=== PATIENT | female | born 1980 | race Caucasian/White ===

== ENCOUNTER 2019-08-03 23:33 | Emergency (ER) | payer OTHER ==
[~2019-08-03] VITALS: Ht 170.2 cm; Wt 70.5 kg
[2019-08-04 00:28] LABS: COLLECTION METHOD CLEAN CATCH
[2019-08-04 00:31] LABS: BASO % 0.2 % (0.0-2.0); GRAN # 18.8 (1.4-6.5); GRAN % 89.6 % (42.2-75.2); HEMOGLOBIN 11.8 g/dl (12.5-16.0); LYMPH % 4.7 % (20.0-51.0); MEAN CELL VOLUME 94 fl (80.0-100.0); MEAN CORPUSCULAR HEMOGLOBIN 32 pg (27.0-31.0); MEAN CORPUSCULAR HGB CONC 34 g/dl (33.0-37.0); MEAN PLATELET VOLUME 10.7 fl (7.4-10.4); PLATELET COUNT 225 K/mm3 (130-400); REDCELL DISTRIBUTION WIDTH-CV 12.2 % (11.5-14.5)
[2019-08-04 00:36] LABS: HEMATOCRIT 34.9 % (37.0-47.0)
[2019-08-04 00:38] LABS: ALBUMIN 4.6 gm/dL (3.5-5.0); BILIRUBIN,TOTAL 1.1 mg/dL (0.0-1.0); CALCIUM 9.1 mg/dL (8.4-10.2); CREATININE, serum 0.63 (0.52-1.25); POTASSIUM 3.7 mmol/L (3.4-5.0); TOTAL PROTEIN 7.7 gm/dL (6.4-8.2)
[2019-08-04 00:46] LABS: AMORPHOUS CRYSTAL Present /uL; MUCOUS Present /lpf; PH 8 (5-8); URINE APPEARANCE Hazy; URINE BACTERIA Rare /hpf; URINE BILIRUBIN Negative (NEGATIVE); URINE BLOOD Negative (NEGATIVE); URINE COLOR Yellow; URINE GLUCOSE 3+ (NEGATIVE); URINE KETONE 2+ (NEGATIVE); URINE LEUKOCYTE ESTERASE Negative (NEGATIVE); URINE NITRATE Negative (NEGATIVE); URINE PROTEIN(semi-quant) Negative (NEGATIVE); URINE UROBILINOGEN Negative (NEGATIVE)
[2019-08-04 03:38] LABS: BASO % 0.2 % (0.0-2.0); GRAN # 16.9 (1.4-6.5); GRAN % 88.9 % (42.2-75.2); LYMPH % 5.4 % (20.0-51.0); MEAN CELL VOLUME 95 fl (80.0-100.0); MEAN CORPUSCULAR HEMOGLOBIN 32 pg (27.0-31.0); MEAN CORPUSCULAR HGB CONC 34 g/dl (33.0-37.0); MEAN PLATELET VOLUME 10.3 fl (7.4-10.4); MONO % 5.1 % (1.7-9.3); PLATELET COUNT 208 K/mm3 (130-400); RED BLOOD COUNT 3.43 M/mm3 (4.10-5.30); REDCELL DISTRIBUTION WIDTH-CV 12.5 % (11.5-14.5)
[2019-08-04 03:43] LABS: HEMATOCRIT 32.5 % (37.0-47.0)
[2019-08-04 04:36] VITALS: BP 99/59; PULSE 55; TEMP 98.1
[2019-08-04] MEDS ORDERED: COLACE 100100 MG/CAP PO (12:15)
[2019-08-04] MEDS ORDERED: MOTRIN 600600 MG/TAB PO (12:15)
[2019-08-04] MEDS ORDERED: PERCOCET 325 MG1 TA2 PO (12:15)
== END 2019-08-04 04:50 | disposition home or self-care (01) ==
LOC: COL.ER 23:33
PROVIDERS: Emergency Medicine
DX: R11.10 Vomiting, unspecified (principal); R10.11 Right upper quadrant pain
CPT/HCPCS: J1170; J2405; J7030; Q9967

== ENCOUNTER 2019-08-04 07:58 | Day surgery (SDC) | payer OTHER ==
[2019-08-04] VITALS (10 sets, daily range): BP systolic 98–112; BP diastolic 51–76; PULSE 61–102; TEMP 97.4–98.4
[~2019-08-04] VITALS: Ht 170.2 cm; Wt 155.0 kg
--- NOTE | 2019-08-04 08:54 | NUR ---
0800 PATIENT ADMITTED FROM ER FOR SURGERY THIS MORNING. ASSESSMENT DONE AT THIS TIME. IV STARTED IN LEFT HAND LR RUNNING WITH ZOSYN PIGGYBACK. PATIENT DENIES NEED AT THIS TIME. WAITING FOR DR GARCÍA TO ROUND.
--- NOTE | 2019-08-04 10:30 | NUR ---
1000 DR GARCÍA AT BEDSIDE TO ASSESS AND DISCUSS OPTIONS WITH PATIENT. VERBAL UNDERSTANDING NOTED. CONSENT SIGNED BY PATIENT WITH VERBAL UNDERSTANDING. ALL PREOP MEDS GIVEN. SHANNAN VICENTE CRNA AT BEDSIDE.
--- NOTE | 2019-08-04 10:52 | NUR ---
1050 PATIENT TO OR VIA BED, ACCOMPANIED BY KRYSTYNA OR STAFF
[2019-08-04] MEDS ORDERED: MOTRIN 600600 MG/TAB PO (12:15)
[2019-08-04] MEDS ORDERED: PERCOCET 325 MG1 TA2 PO (12:15)
[2019-08-04] MEDS ORDERED: COLACE 100100 MG/CAP PO (12:15)
--- NOTE | 2019-08-04 13:50 | NUR ---
PATIENT SITS UP IN BED EATING LUNCH AND DRINKING WATER
--- NOTE | 2019-08-04 14:26 | NUR ---
PATIENT UP TO BATHROOM. TOLERATE ACTIVITY WELL. VOIDS WITHOUT DIFFICULTY
--- NOTE | 2019-08-04 14:54 | NUR ---
UP AMBULATEIN HALLS TOLERATE WELL. TODD GRIGGS'D AND ALL DISCHARGE INSTRUCTIONS GIVEN TO PATIENT AND . VERBAL UNDERSTANDING NOTED. PATIENT DENIES NEEDS AT THIS TIME.
--- NOTE | 2019-08-04 15:07 | NUR ---
1500 PATIENT DISMISSED TO POV ACCAMPANIED BY STAFF AND . DENIES NEEDS
== END 2019-08-04 15:00 | disposition home or self-care (01) ==
LOC: SDCO 07:58 → OB 07:58 → SDCO 15:00
DX: K35.80 Unspecified acute appendicitis (principal)
CPT/HCPCS: OP; J1100; J1885; J2250; J2405; J2543; J2704; J2765; J3010; J7120

== ENCOUNTER → 2020-08-02 | Outpatient (CLI) | payer OTHER ==
[~2020-08-02] MED LIST: COLACE 100100 MG/CAP PO; MOTRIN 600600 MG/TAB PO; PERCOCET 325 MG1 TA2 PO
== END ==
LOC: MC.RAD 13:41
DX: Z12.31 Encounter for screening mammogram for malignant neoplasm of breast (principal); Z98.82 Breast implant status

== ENCOUNTER → 2024-04-27 | Outpatient (CLI) | payer OTHER | LOC: MC.RAD 08:44 | DX: Z12.31 Encounter for screening mammogram for malignant neoplasm of breast (principal) ==